=== PATIENT | male | born 1950 | race Caucasian/White ===

== ENCOUNTER 2020-10-09 13:39 | Emergency (ER) | payer MEDICARE, MEDICAID ==
--- NOTE | 2020-10-09 16:00 | EDM.PDOC ---
ED HPI GENERAL MEDICAL PROBLEM - General Chief Complaint: Lower Extremity Injury/Pain Stated Complaint: RT FOOT TOE TURNING BLACK Time Seen by Provider: 10/09/20 15:21 Source of Information: Reports: Patient, Family, Old Records, RN Notes Reviewed History Limitations: Reports: No Limitations - History of Present Illness INITIAL COMMENTS - FREE TEXT/NARRATIVE: 70-year-old gentleman presents emergency department today mainly for second opinion, he does have necrosis of digit #2 on the left foot he has been working with vascular surgery recently underwent balloon dilation of several arteries within the foot however he has greater than 75 stenosis in the femoral artery. He has a appointment tomorrow with podiatry 10 Pain Score (Numeric/FACES): 10 - Related Data Allergies Allergy/AdvReac Type Severity Reaction Status Date / Time No Known Allergies Allergy Verified 10/09/20 14:23 Home Meds: Home Meds Apixaban [Eliquis] 1 tab PO DAILY 10/09/20 [History] Aspirin 1 tab PO DAILY 10/09/20 [History] Clopidogrel [Plavix] 1 tab PO DAILY 10/09/20 [History] amLODIPine Besylate [Amlodipine Besylate] 1 tab PO DAILY 10/09/20 [History] lisinopriL [Prinivil] 1 tab PO DAILY 10/09/20 [History] Past Medical History Cardiovascular History: Reports: High Cholesterol, PTCA, PVD Endocrine/Metabolic History: Reports: Diabetes, Type II Social & Family History - Tobacco Use Tobacco Use Status *Q: Never Tobacco User Review of Systems - Review of Systems Review Of Systems: See Below Musculoskeletal: Reports: Leg Pain Skin: Reports: Wound Neurological: Reports: Tingling ED EXAM, GENERAL - Physical Exam Exam: See Below Free Text/Narrative:: Examination of the left foot I cannot appreciate any pedal pulse there is no hair on the lower extremity digit #2 is black longterm up the toe Course - Vital Signs Last Recorded V/S: Last Vital Signs Temp 97.0 F 10/09/20 14:39 Pulse 61 10/09/20 14:39 Resp 14 10/09/20 14:39 BP 145/67 H 10/09/20 14:39 Pulse Ox 98 10/09/20 14:39 Departure - Departure Time of Disposition: 15:59 Disposition: Home, Self-Care 01 Condition: Fair Clinical Impression: Necrosis of toe - Discharge Information Referrals: PCP,None [Primary Care Provider] - Additional Instructions: Please keep your appointment with podiatry tomorrow call return to the emergency department worsening of symptoms Sepsis Event Note (ED) - Evaluation Sepsis Screening Result: No Definite Risk - Focused Exam Vital Signs: Vital Signs Temp Pulse Resp BP Pulse Ox 10/09/20 14:39 97.0 F 61 14 145/67 H 98 - Assessment/Plan Plan: Assessment Acuity = acute Site and laterality = necrosis digit #2 left foot Etiology = combination peripheral vascular disease with diabetes mellitus type 2 Manifestations = peripheral neuropathy Location of injury = Home Lab values = none Plan I did review lab work they had done at [facility] which shows a recent ankle-brachial index study with waveform analysis shows greater than 75% stenosis femoral artery superficial branch . 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
== END 2020-10-09 16:21 | disposition home or self-care (01) ==
LOC: EEVIPCON 13:39 → JP.ED 13:39
DX: E11.52 Type 2 diabetes mellitus with diabetic peripheral angiopathy with gangrene (principal); I96 Gangrene, not elsewhere classified; I10 Essential (primary) hypertension; Z79.01 Long term (current) use of anticoagulants; Z79.82 Long term (current) use of aspirin; Z79.02 Long term (current) use of antithrombotics/antiplatelets; Z95.5 Presence of coronary angioplasty implant and graft; Z79.899 Other long term (current) drug therapy
CPT/HCPCS: 99282